=== PATIENT | female | born 1990 | race Caucasian/White ===

== ENCOUNTER 2024-02-08 12:11 | Inpatient (IN) | payer OTHER ==
[2024-02-08 14:25] LABS: EPI CELLS 14 /uL (0-25.1); HCG,QUALITATIVE URINE Negative; HYALINE CASTS 0 /uL (0-3.1); PH,URINE 5.5 (5.0-8.0); URINE APPEARANCE CLEAR; URINE BACTERIA 110 /uL (0-1359); URINE BILIRUBIN NEGATIVE (NEGATIVE); URINE COLOR YELLOW; URINE GLUCOSE (UA) NEGATIVE (NEGATIVE); URINE KETONE 1+ (NEGATIVE); URINE LEUK ESTERASE NEGATIVE (NEGATIVE); URINE NITRITE NEGATIVE (NEGATIVE); URINE PROTEIN NEGATIVE (NEGATIVE); URINE RBC 12 /uL (0-23.9); URINE UROBILINOGEN 0.2 mg/dL (0.2-1.0); URINE WBC 9 /uL (0-25.8)
[2024-02-08] MEDS: ACETAMINOPHEN 1000 MG/100 ML BAG IVPB ONE (14:51)
[2024-02-08] MEDS: FAMOTIDINE 20 MG/50 ML IVPB 20 MG/50 ML MG IVPB ONE (14:52)
[2024-02-08 15:01] LABS: BASO % 0.3 % (0-2.0); EOS % 0.1 % (0-4.5); HEMATOCRIT 37.2 % (32.4-45.2); HEMOGLOBIN 12.2 GM/dL (10.7-15.3); LYMPH % 7.1 % (8-40); MCH 28.9 pg (25.7-33.7); MCHC 32.9 g/dl (32.0-36.0); MEAN CELL VOLUME 87.8 fl (80-96); MEAN PLT VOLUME 9.1 fl (7.5-11.1); MONO % 7.7 % (3.8-10.2); NEUT % 84.8 % (42.8-82.8); PLATELET COUNT 243 10^3/uL (134-434); RBC 4.23 M/mm3 (3.60-5.2); RDW 14.5 % (11.6-15.6); WHITE BLOOD COUNT 14.1 K/mm3 (4.0-10.0)
[2024-02-08 15:08] LABS: INR 1.15 (0.83-1.09); PROTHROMBIN TIME (PATIENT) 12.9 SEC (9.7-13.0)
[2024-02-08 16:32] LABS: POTASSIUM 3.7 mmol/L (3.5-5.1)
[2024-02-08 16:34] LABS: CALCIUM 8.4 mg/dL (8.5-10.1)
[2024-02-08 16:35] LABS: ALBUMIN 3.3 g/dl (3.4-5.0); BLOOD UREA NITROGEN 3.9 mg/dL (7-18)
[2024-02-08 16:38] LABS: CREATININE 0.6 mg/dL (0.55-1.3)
[2024-02-08 16:39] LABS: BILIRUBIN,TOTAL 1.5 mg/dL (0.2-1); TOT PROT 6.5 g/dl (6.4-8.2)
[2024-02-08] MEDS: SODIUM CHLORIDE 1,000 ML IV STA (18:11)
[2024-02-08] MEDS: CEFOXITIN SODIUM 2 GM in DEXTROSE 5%-WATER - 100 ML IVPB ONE (18:25)
[2024-02-08] MEDS ORDERED: MORPHINE SULFATE 2 MG/ML SYRINGE ONE (20:09)
[2024-02-08] MEDS: morphine CARPU-JECT 2 MG/1 ML DISP.SYRIN IVPUSH ONE (20:14)
[2024-02-08] MEDS: SODIUM CHLORIDE 1,000 ML IV SCH (20:47)
[2024-02-09] MEDS ORDERED: MORPHINE SULFATE 2 MG/ML SYRINGE ONE (01:04)
[2024-02-09] MEDS ORDERED: ACETAMINOPHEN INJECTION 100 ML ONE (01:04)
[2024-02-09] MEDS: ACETAMINOPHEN 1000 MG/100 ML BAG IVPB PRN ×2 (01:13→14:36)
[2024-02-09 06:48] VITALS: BMI 26.2
[2024-02-09] MEDS ORDERED: BUPIVACAINE HCL/PF 0.25% (2.5MG/ML) 10 ML VIAL ONE (07:02)
[2024-02-09] MEDS ORDERED: DEXAMETHASONE SOD PHOSPHATE 4 MG/1 ML VIAL ONE (08:10)
[2024-02-09] MEDS ORDERED: ONDANSETRON 4 MG/2 ML VIAL ONE (08:10)
[2024-02-09] MEDS ORDERED: KETOROLAC TROMETHAMINE 30 MG/1 ML VIAL ONE ×2 (08:10→09:39)
[2024-02-09] MEDS ORDERED: ROCURONIUM BROMIDE 50 MG/5 ML SYRINGE ONE (08:10)
[2024-02-09] MEDS ORDERED: LIDOCAINE HCL/PF 2% SDV 5ML VIAL ONE (08:10)
[2024-02-09] MEDS ORDERED: PROPOFOL 20 ML ONE (08:10)
[2024-02-09] MEDS ORDERED: MIDAZOLAM HCL 2 MG/2 ML SINGLE DOSE VIAL ONE (08:10)
[2024-02-09] MEDS ORDERED: cefOXitin SODIUM 2 GM VIAL (RESTRICTED TO ID) IVPB ONE (08:26)
[2024-02-09] MEDS: cefOXitin SODIUM 2 GM VIAL (RESTRICTED TO ID) IVPB ONE (08:52)
[2024-02-09] MEDS ORDERED: SUGAMMADEX SODIUM 200 MG/2 ML VIAL ONE (09:33)
[2024-02-09] MEDS: BUPIVACAINE HCL/PF 0.25% (2.5MG/ML) 10 ML VIAL IJ ONE (09:41)
[2024-02-09] MEDS ORDERED: ONDANSETRON 4 MG/2 ML VIAL IVPUSH PRN ×2 (09:51→10:05)
[2024-02-09] MEDS ORDERED: LACTATED RINGERS SOLUTION 1,000 ML IV SCH (10:00)
[2024-02-09] MEDS: LACTATED RINGERS SOLUTION 1,000 ML IV SCH (10:08)
[2024-02-09 12:18] LABS: HEMOGLOBIN 11.5 GM/dL (10.7-15.3); MCH 28.8 pg (25.7-33.7); MCHC 32.8 g/dl (32.0-36.0); MEAN CELL VOLUME 87.8 fl (80-96); MEAN PLT VOLUME 8.5 fl (7.5-11.1); PLATELET COUNT 218 10^3/uL (134-434); RBC 3.99 M/mm3 (3.60-5.2); RDW 14.7 % (11.6-15.6)
[2024-02-09 12:41] LABS: POTASSIUM 3.3 mmol/L (3.5-5.1)
[2024-02-09 12:44] LABS: BLOOD UREA NITROGEN 4.2 mg/dL (7-18); CALCIUM 8.1 mg/dL (8.5-10.1); MAGNESIUM 2.1 mg/dL (1.8-2.4)
[2024-02-09 12:47] LABS: CREATININE 0.6 mg/dL (0.55-1.3)
[2024-02-09 12:48] LABS: PHOSPHOROUS 1.8 mg/dL (2.5-4.9)
[2024-02-09 12:49] LABS: BILIRUBIN,TOTAL 1.2 mg/dL (0.2-1)
[2024-02-09] MEDS: POTASSIUM PHOSPHATE 15 MM in SODIUM CHLORIDE 250 ML IVPB ONE (15:35)
[2024-02-09] MEDS: CEFAZOLIN 1 GM in DEXTROSE 5%-WATER - 50 ML IVPB SCH (17:07)
[2024-02-10] MEDS ORDERED: ACETAMINOPHEN 500 MG TABLET (FP) PO PRN (07:45)
[2024-02-10] MEDS ORDERED: KETOROLAC TROMETHAMINE 30 MG/1 ML VIAL IVPUSH PRN (07:46)
[2024-02-10 10:02] LABS: BASO % 0.3 % (0-2.0); EOS % 0.3 % (0-4.5); HEMATOCRIT 34.5 % (32.4-45.2); HEMOGLOBIN 11.7 GM/dL (10.7-15.3); LYMPH % 20.7 % (8-40); MEAN CELL VOLUME 88.3 fl (80-96); MEAN PLT VOLUME 8.7 fl (7.5-11.1); MONO % 6.2 % (3.8-10.2); NEUT % 72.5 % (42.8-82.8); PLATELET COUNT 240 10^3/uL (134-434); RDW 14.9 % (11.6-15.6); WHITE BLOOD COUNT 10.4 K/mm3 (4.0-10.0)
[2024-02-10 10:12] LABS: POTASSIUM 3.7 mmol/L (3.5-5.1)
[2024-02-10 10:17] LABS: BLOOD UREA NITROGEN 4.6 mg/dL (7-18); CALCIUM 8.6 mg/dL (8.5-10.1); MAGNESIUM 2.2 mg/dL (1.8-2.4)
[2024-02-10 10:19] VITALS: BP 110/76; PULSE 99; RESP 19; TEMP 98.1
[2024-02-10 10:20] LABS: CREATININE 0.8 mg/dL (0.55-1.3); PHOSPHOROUS 1.8 mg/dL (2.5-4.9)
[2024-02-10 10:22] LABS: BILIRUBIN,TOTAL 0.9 mg/dL (0.2-1); TOT PROT 6.3 g/dl (6.4-8.2)
== END 2024-02-10 12:48 | disposition home or self-care (01) | DRG 225 ==
LOC: JER 12:11 → JERBED 19:54 → J5S 02-09 05:49
PROVIDERS: ADMIT Internal Medicine; ATTEND Internal Medicine
PROC: 0DTJ4ZZ Resection of Appendix, Percutaneous Endoscopic Approach (ICD-10-PCS; principal; 2024-02-09 07:30)
DX: K35.80 Unspecified acute appendicitis (principal); K21.9 Gastro-esophageal reflux disease without esophagitis; R14.0 Abdominal distension (gaseous)
CPT/HCPCS: 36415; 74177-TC; 76830-TC; 80053; 81003; 83690; 83735; 84100; 84703; 85025; 85027; 85610; 86850; 86900; 86901; 87086; 88304-TC; 94760; 99285-25; J0131; Q9967